=== PATIENT | male | born 1975 | race Caucasian/White ===

== ENCOUNTER 2024-08-26 11:38 | Emergency (ER) | payer OTHER, SELFPAY ==
[2024-08-26 11:44] VITALS: BP 137/91
[2024-08-26 11:55] VITALS: BP 154/100
[2024-08-26 12:01] VITALS: BP 149/90
--- NOTE | 2024-08-26 12:25 | ED.GENMED ---
History of Present Illness
General
Chief Complaint: Change in Mental Status
Time Seen by Provider: 08/26/24 12:25
History of Present Illness
History of Present Illness:
TIME OF INITIAL ENCOUNTER: 12:26 PM
HPI: The patient presents due to a lightheaded/vertiginous kind of episode that was rather severe to the point that he had to get down off of his tractor. Earlier this morning he went on a 5 mile run which is normal for him 5 days a week. He did
not have any significant symptoms at that time. He had no exert symptoms. When he was mowing his lawn on the tractor he started to feel unwell. He was cognizant of the episode and did not necessarily feel confused. states that he drinks
excessive amount of sodas on a daily basis.
EXAM:
GENERAL: Well appearing in no distress
HEENT: Moist oral mucosa
CARDIOVASCULAR: No murmurs, normal heart rate, regular rhythm, No chest wall tenderness
PULMONARY: No respiratory distress, breath sounds are clear and equal
ABDOMEN: Soft with no peritoneal signs, no tenderness
NEUROLOGIC: Excellent strength all extremities, no coordination deficits
PSYCHIATRIC: Appropriate mental status, normal insight and judgement
EXTREMITIES: Nontender, no edema, moves all extremities equally
SKIN: No rash, no lesions
NUMBER AND COMPLEXITY OF PROBLEMS ADDRESSED AT THE ENCOUNTER
� Chronic conditions affecting care: No significant past medical history
� Acute Exacerbation and/or Progression of Chronic Illness:
� Differential Diagnosis includes:
AMOUNT AND/OR COMPLEXITY OF DATA TO BE REVIEWED AND ANALYZED
� I performed an independent evaluation of and my interpretation is:
EKG: Sinus 72, left axis deviation, borderline LVH
CT:
X-rays:
Laboratory Studies: White count 7.5, hemoglobin 14.5, chemistries and CK
Other:
� Review of other/old records: No old records available for review in [facility]
� Clinical information was obtained by an independent historian: Spoke to at bedside
� Prescriptions/Medications Considered but not given:
� Further testing considered but not performed:
RISK OF COMPLICATIONS AND/OR MORBIDITY OR MORTALITY OF PATIENT MANAGEMENT
� Social determinants of health affecting care: Lives at home
� Discussion with other providers:
� Escalation of care including admission/observation vs risk of discharge considered: The patient is very well-appearing. Vital signs normal other than mild initial hypertension. CK is normal. Other basic labs normal. He has
excellent mental status. Adwoa-Hallpike negative.
ANY OTHER UPDATES:
1:20 PM: I reassessed patient. All symptoms have essentially resolved. However he was already feeling better even before any IV fluids were given. He and indicate that he had not eaten much over the last couple of days and may be a
contributing factor.
Phy Exam
Physical Exam
Physical Exam:
See HPI
Course
Orders/Labs/Results
Orders:
Orders
08/26/24 12:12
EKG [Electrocardiogram (*1)] Urgent
Reason for Study: Vertigo / Dizzy
EKG- Treatment ONCE
08/26/24 12:16
CBC/With Diff [Complete Blood Count/With Diff] Urgent
CMP [Comprehensive Metabolic Panel] Urgent
Creatine [Creatine Phosphokinase] Urgent
08/26/24 12:26
0.9% Sodium Chloride 1000 ml [Nss] 1,000 ml IV BOLUS
Abnormal Lab Results
08/26/24
12:16
RBC 4.57 L 10^6/uL
(4.70-6.10)
MCH 31.7 H pg
(27.0-31.0)
Absolute Lymphs (auto) 0.8 L 10^3/uL
(1.2-3.4)
Neutrophils % 80.6 H %
(42.2-75.2)
Lymphocytes % 10.1 L %
(20.5-51.1)
06/01/25 12:16
08/26/24 12:16
Vital Signs
Initial and Last Documented VS:
Initial Vital Signs
Temp Pulse Resp BP Pulse Ox
36.5 C 69 18 137/91 100
08/26/24 11:44 08/26/24 11:44 08/26/24 11:44 08/26/24 11:44 08/26/24 11:44
Last Documented Vital Signs
Temp Pulse Resp BP Pulse Ox
36.5 C 74 15 142/96 99
08/26/24 11:44 08/26/24 13:30 08/26/24 13:30 08/26/24 13:00 08/26/24 13:30
*Critical Care Note
Total Time (30-74mins, 75-104mins- exclusive of procedures): Not Applicable
ED Attending Note
-
Portions of this chart may have been created with voice recognition software.� Occasional wrong word or��sound alike� substitutions may have occurred due to the inherent limitations of voice recognition software.
Discharge Plan
Departure
Patient Disposition: Home (Routine Discharge)
Date of Disposition: 08/26/24
Time of Disposition: 13:27
Patient with high blood pressure during this ER visit?: Yes
Discharge Problem:
Light-headedness
Instructions: Dizziness, BLOOD PRESSURE
Referrals:
Latonya Garcia MD [Family Provider, Family Practice]
Activity Restrictions/Additional Instructions:
The cause of your symptoms is unclear. Basic blood work including white blood cell count, hemoglobin level, glucose, electrolytes, kidney function, liver function, and CK level are all normal. EKG is unremarkable. We gave you a liter of saline.
Return here if worse or other concerns.
Interventions
Interventions:
*Risk Screen - Suicide Last Done: 08/26/24 11:44
*General Assessment Last Done: 08/26/24 11:44
*Neglect/Abuse Screening Last Done: 08/26/24 11:44
*Nursing Disposition Last Done: 08/26/24 13:39
ED- Neurological Assessment Last Done: 08/26/24 12:21
ED- Cardiac Assessment Last Done: 08/26/24 12:21
ED Swallowing Screen Last Done: 08/26/24 12:21
Discharge Date and Time
Discharge Date/Time: 08/26/24 13:39
Print Language: EQUATORIAL GUINEAN
[2024-08-26 12:27] LABS: % Basophils 0.7 % (0-2); % Eosinophils 1.3 % (0-6); % Immature Granulocytes 0.4 % (0-0.5); % Lymphocytes 10.1 % (20.5-51.1); % Monocytes 6.9 % (1.7-9.3); % Neutrophils 80.6 % (42.2-75.2); Absolute Basophils 0.1 10^3/uL (0-0.2); Absolute Eosinophils 0.1 10^3/uL (0-0.7); Absolute Lymphocytes 0.8 10^3/uL (1.2-3.4); Absolute Monocytes 0.5 10^3/uL (0.1-0.6); Absolute Neutrophils 6.1 10^3/uL (1.4-6.5); Hematocrit 41.7 % (39.0-52.0); Hemoglobin 14.5 g/dL (13.0-18.0); Mean Corp Hgb Conc. 34.8 g/dL (33.0-37.0); Mean Corpuscular Hgb 31.7 pg (27.0-31.0); Mean Corpuscular Volume 91.2 fL (80.0-94.0); Mean Platelet Volume 9.8 fL (7.4-10.4); Nucleated Red Blood Cells % 0 % (-); Platelet Count 195 10^3/uL (130-400); Red Blood Cell Count 4.57 10^6/uL (4.70-6.10); Red Cell Dist. Width 12.3 % (11.5-14.5); White Blood Cell Count 7.5 10^3/uL (4.8-10.8)
[2024-08-26] MEDS: NSS 1000 IV (12:31)
[2024-08-26 12:38] LABS: ALT (SGPT) 28 U/L (0-50); AST (SGOT) 36 U/L (17-59); Albumin 4.9 g/dl (3.5-5.0); Alkaline Phosphatase 70 U/L (38-126); Blood Urea Nitrogen 16 mg/dl (9-20); Calcium 9.6 mg/dl (8.4-10.2); Carbon Dioxide 27 mmol/L (22-30); Chloride 103 mmol/L (98-107); Creatine Phosphokinase 145 U/L (55-170); Estimated Creatinine Clearance 93 ml/min; Glucose 96 mg/dl (70-99); Potassium 4.4 mmol/L (3.5-5.1); Sodium 136 mmol/L (135-145); Total Protein 7.3 g/dl (6.3-8.2); eGFR > 60.00
[2024-08-26 13:00] VITALS: BP 142/96
== END 2024-08-26 13:39 | disposition home or self-care (01) ==
LOC: EMR 11:38
PROVIDERS: EMERGENCY PHYSICIAN Emergency Medicine; FAMILY PHYSICIAN Family Medicine
DX: R42 Dizziness and giddiness (principal); R03.0 Elevated blood-pressure reading, without diagnosis of hypertension
CPT/HCPCS: 99284; 96360; 80053; 82550; 85025; 93005